=== PATIENT | male | born 1980 | race Caucasian/White ===

== ENCOUNTER 2020-04-20 20:38 | Emergency (ER) | payer OTHER ==
[2020-04-20 20:43] VITALS: BP 131/84
--- NOTE | 2020-04-20 23:10 | ED Physician Documentation ---
PD HPI LOWER EXT INJURY - Stated complaint Stated Complaint: LT FT INJ/PX - Chief complaint Chief Complaint: Wound - History obtained from History obtained from: Patient - History of Present Illness PD HPI LOW EXT INJURY LOCATION: Left Type of injury: Puncture wound Where injury occurred: Other (beach) Timing - onset: Enter time (18:30) Timing - details: Abrupt onset Pain level now: 2 Improved by: Rest Worsened by: Palpating Associated symptoms: No: Weakness, Numbness, Tingling, Swelling Contributing factors: No: Anticoagulated Similar symptoms before: Has not had sx before Recently seen: Not recently seen - Additional information Additional information: at approximately 6:30 PM today, patient [place] when he stepped on a broken branch; the branch punctured through his shoe and into his left foot Review of Systems Skin: reports: Laceration (s) (puncture) Musculoskeletal: reports: Extremity pain Neurologic: denies: Focal weakness, Numbness PD PAST MEDICAL HISTORY - Past Medical History Past Medical History: No Cardiovascular: None Respiratory: None Neuro: None Endocrine/Autoimmune: None GI: None : None HEENT: None Psych: None Musculoskeletal: None Derm: None - Past Surgical History Past Surgical History: No - Present Medications Home Medications: Ambulatory Orders Medication Instructions Recorded Confirmed Levofloxacin [Levaquin] 750 mg PO DAILY #4 tablet 04/20/20 - Allergies Allergies/Adverse Reactions: Allergies Allergy/AdvReac Type Severity Reaction Status Date / Time No Known Drug Allergies Allergy Verified 04/20/20 20:41 - Social History Does the pt smoke?: No Smoking Status: Never smoker Does the pt drink ETOH?: No Does the pt have substance abuse?: No - Immunizations Immunizations are current?: No - POLST Patient has POLST: No PD ED PE NORMAL - Vitals Vital signs reviewed: Yes - General General: Alert and oriented X 3, No acute distress, Well developed/nourished - Neuro Neuro: No motor deficit, No sensory deficit PD ED PE EXPANDED - Extremities Extremities: Pedal Pulses Present, Motor intact, Sensory intact, Vascular intact, Tendon intact Feet visual: 1 - laceration (1.5 cm laceration) Results - Vitals Vitals: Vital Signs - 24 hr 04/20/20 04/20/20 04/21/20 20:41 21:18 00:00 Temperature 36.5 C Heart Rate 78 Respiratory 16 16 16 Rate Blood Pressure 131/84 H O2 Saturation 98 Oxygen O2 Source Room air Procedures - Laceration (location) Foot left Length in cm: 1.5 Wound type: Linear Neurovascular status: Sensory intact, Motor intact, Vascular intact Tendon involvement: Tendon intact Anesthesia: Lidocaine 1% Wound Preparation: Chlorhexadine, Irrigated copiously NS, Wound explored. No: FB identified Skin layer closure: Nylon, Running, Size #-0 - enter number (4-0) Other: Patient tolerated well, No complications, Neurovascular intact, Dressing applied, Tetanus UTD Complexity: Simple PD MEDICAL DECISION MAKING - ED course Complexity details: considered differential, d/w patient Departure - Departure Disposition: 01 Home, Self Care Clinical Impression: Puncture wound of foot Qualifiers: Encounter type: initial encounter Laterality: left Qualified Code(s): S91.332A - Puncture wound without foreign body, left foot, initial encounter Condition: Good Instructions: ED Laceration Foot, ED Wound Puncture General Prescriptions: Levofloxacin [Levaquin] 750 mg PO DAILY #4 tablet Comments: Follow up with your primary care provider in 7-8 days for removal of the stitches Discharge Date/Time: 04/21/20 00:01
[2020-04-20] MEDS ORDERED: LIDOCAINE 1% 2 ML VIAL SUBQ STA (23:20)
[2020-04-20] MEDS ORDERED: levoFLOXacin 250 MG TABLET PO STA (23:25)
[2020-04-20] MEDS ORDERED: BACITRACIN ZINC OINT 1 PACKET TOP STA (23:47)
== END 2020-04-21 00:01 | disposition home or self-care (01) ==
LOC: ED 20:38
DX: S91.312A Laceration without foreign body, left foot, initial encounter (principal); W22.8XXA Striking against or struck by other objects, initial encounter; W26.8XXA Contact with other sharp object(s), not elsewhere classified, initial encounter; Y93.01 Activity, walking, marching and hiking; Y92.832 Beach as the place of occurrence of the external cause
CPT/HCPCS: 12001; 99282; 99283; A9270